=== PATIENT | female | born 1990 | race Caucasian/White ===

== ENCOUNTER 2020-04-13 12:00 | Outpatient (CLI) | payer OTHER, SELFPAY | END 2020-04-13 13:00 | disposition home or self-care (01) | LOC: SLB 12:00 → EDSTATUS 04-19 09:45 | PROVIDERS: ATTEND Obstetrics & Gynecology | DX: Z01.812 Encounter for preprocedural laboratory examination (principal); Z20.822 Contact with and (suspected) exposure to COVID-19 | CPT/HCPCS: U0003 ==

== ENCOUNTER 2020-05-11 07:02 | Day surgery (SDC) | payer OTHER, SELFPAY ==
[~2020-05-11] VITALS: Ht 162.6 cm; Wt 87.1 kg
[2020-05-11] MEDS ORDERED: OXYCODONE/ACETAMINOPHEN 5-325 TABLET PO ONE (08:30)
[2020-05-11] MEDS ORDERED: LR 1,000 ML IV SCH (08:30)
[2020-05-11] MEDS ORDERED: fentaNYL CITRATE/PF 100 MCG/2 ML AMP IVP PRN (08:30)
[2020-05-11] MEDS ORDERED: MEPERIDINE HCL/PF 25 MG/ML DISP.SYRIN IVP PRN (08:30)
[2020-05-11 10:15] VITALS: BP_SYST 121
[2020-05-11] MEDS ORDERED: KETOROLAC TROMETHAMINE 30 MG VIAL IVP ONE (10:30)
[2020-05-11] MEDS ORDERED: ONDANSETRON HCL 4 MG/2 ML VIAL IVP ONE (10:30)
[2020-05-11] MEDS ORDERED: HYDROmorphone 2 MG/ML VIAL IVP ONE (10:30)
[2020-05-11] MEDS ORDERED: ONDANSETRON HCL 4 MG/2 ML VIAL ONE (10:34)
== END 2020-05-11 11:45 | disposition home or self-care (01) ==
LOC: SMU 07:02 → SDS 07:02
PROVIDERS: ATTEND Obstetrics & Gynecology
DX: Z30.2 Encounter for sterilization (principal); F90.9 Attention-deficit hyperactivity disorder, unspecified type; Z79.899 Other long term (current) drug therapy; Z20.828 Contact with and (suspected) exposure to other viral communicable diseases
CPT/HCPCS: 58670; C1727; J2405; U0003

== ENCOUNTER 2020-05-13 23:54 | Emergency (ER) | payer OTHER, SELFPAY ==
[~2020-05-13] VITALS: Ht 162.6 cm; Wt 86.2 kg
[2020-05-14] VITALS: BP_SYST 157
--- NOTE | 2020-05-14 00:05 | NUR ---
Patient to ER bed 8 to gown for evaluation. Side rails up.
--- NOTE | 2020-05-14 00:06 | NUR ---
Patient came to ER with family. C/O constipation x 3 days. Patient had constipation for 3 days, took stool softener, laxatives and no relief, rectal bleeding. A/O,X4, rectal pain, pain rate 5/10.
--- NOTE | 2020-05-14 00:19 | NUR ---
ER Dr. Pretty at bedside examining patient.
[2020-05-14] MEDS ORDERED: SODIUM PHOSPHATE,MONO-DIBASIC 133 ML ENEMA RC ONE (00:30)
[2020-05-14] MEDS ORDERED: MIDAZOLAM HCL 5 MG/5 ML VIAL IVP ONE (01:45)
[2020-05-14] MEDS ORDERED: MIDAZOLAM HCL 5 MG/5 ML VIAL ONE (02:11)
[2020-05-14 02:27] LABS: BASOPHILS # (AUTO) 0.1 K/uL (0.0-0.2); BASOPHILS % (AUTO) 0.5 % (0.0-2.0); EOSINOPHILS # (AUTO) 0.1 K/uL (0.0-0.4); EOSINOPHILS % (AUTO) 0.6 % (0.0-4.0); HEMATOCRIT 40.6 % (36-48); HEMOGLOBIN 13.7 g/dL (12.0-16.0); LYMPHOCYTES # (AUTO) 2.5 K/uL (1.0-5.5); LYMPHOCYTES % (AUTO) 21.5 % (20.5-51.5); MEAN CORPUSCULAR HEMOGLOBIN 31 pg (27-31); MEAN CORPUSCULAR HGB CONC 34 % (32-36); MEAN CORPUSCULAR VOLUME 93 fL (79.0-98.0); MONOCYTES # (AUTO) 0.7 K/uL (0.0-1.0); MONOCYTES % (AUTO) 5.9 % (1.7-9.3); NEUTROPHILS # (AUTO) 8.2 K/uL (1.8-7.7); NEUTROPHILS % (AUTO) 71.5 % (40.0-70.0); PLATELET COUNT (AUTO) 206 K/uL (130-430); RED BLOOD CELL COUNT(AUTO) 4.35 MIL/uL (4.2-6.2); RED CELL DISTRIBUTION WIDTH 13.4 % (9.0-15.0); WHITE BLOOD COUNT (AUTO) 11.5 K/uL (4.8-10.8)
[2020-05-14 02:40] VITALS: BP_SYST 148
--- NOTE | 2020-05-14 02:45 | NUR ---
Patient given written and verbal discharge instructions and verbalizes understanding. DR. BEVERLY QUIGLEY MD discussed with patient the results and treatment provided. Patient in stable condition. ID arm band removed. IV catheter removed intact and dressing applied, no active bleeding. Rx of COLACE AND MAG CITRATE given. Patient educated on pain management and to follow up with PMD. Pain Scale 0/10. Opportunity for questions provided and answered. Medication side effect fact sheet provided.
[2020-05-14 02:49] LABS: CALCIUM 9.2 mg/dL (8.4-11.0); CREATININE 1.03 mg/dL (0.55-1.30); POTASSIUM 3.5 mmol/L (3.5-5.1)
[2020-05-14 02:53] LABS: ALBUMIN 3.6 g/dL (3.4-4.8); TOTAL BILIRUBIN 0.4 mg/dL (0.0-1.0)
== END 2020-05-14 02:40 | disposition home or self-care (01) ==
LOC: SED 23:54
DX: K59.00 Constipation, unspecified (principal)
CPT/HCPCS: 36415; 80053; 83690; 85025; 96374; 99283; J2250

== ENCOUNTER 2023-07-11 23:02 | Emergency (ER) | payer OTHER ==
[~2023-07-11] VITALS: Ht 162.6 cm; Wt 90.7 kg
[2023-07-11 23:12] VITALS: BP_SYST 120; PULSE 117; RESP 16; TEMP 97.9; O2SAT 98
[2023-07-11] MEDS: KETOROLAC TROMETHAMINE 30 MG VIAL IVP ONE (23:55)
[2023-07-11] MEDS: ONDANSETRON HCL 4 MG/2 ML VIAL IVP ONE (23:55)
[2023-07-11] MEDS: NACL 0.9% 1,000 ML IV ONE (23:56)
[2023-07-12 00:04] LABS: CALCIUM 8.8 mg/dL (8.4-11.0); CREATININE 0.89 mg/dL (0.55-1.30); POTASSIUM 3.6 mmol/L (3.5-5.1)
[2023-07-12 00:23] LABS: ALBUMIN 3.8 g/dL (3.4-4.8); BILIRUBIN,DIRECT 0.1 mg/dL (0.0-0.3); TOTAL BILIRUBIN 0.7 mg/dL (0.0-1.0); TOTAL PROTEIN, SERUM 8.1 g/dL (6.4-8.3)
[2023-07-12 01:31] LABS: BASOPHILS # (AUTO) 0.1 K/uL (0.0-0.2); BASOPHILS % (AUTO) 0.3 % (0.0-2.0); EOSINOPHILS # (AUTO) 0.1 K/uL (0.0-0.4); EOSINOPHILS % (AUTO) 0.3 % (0.0-4.0); HEMATOCRIT 43.9 % (36-48); LYMPHOCYTES # (AUTO) 0.4 K/uL (1.0-5.5); LYMPHOCYTES % (AUTO) 2.4 % (20.5-51.5); MEAN CORPUSCULAR HEMOGLOBIN 31 pg (27-31); MEAN CORPUSCULAR HGB CONC 34 % (32-36); MEAN CORPUSCULAR VOLUME 92 fL (79.0-98.0); MONOCYTES # (AUTO) 0.7 K/uL (0.0-1.0); MONOCYTES % (AUTO) 3.9 % (1.7-9.3); NEUTROPHILS # (AUTO) 17.4 K/uL (1.8-7.7); NEUTROPHILS % (AUTO) 93.1 % (40.0-70.0); PLATELET COUNT (AUTO) 222 K/uL (130-430); RED BLOOD CELL COUNT(AUTO) 4.78 MIL/uL (4.2-6.2); RED CELL DISTRIBUTION WIDTH 13.6 % (9.0-15.0); WHITE BLOOD COUNT (AUTO) 18.7 K/uL (4.8-10.8)
[2023-07-12 01:37] VITALS: RESP 18; TEMP 98.1
[2023-07-12] MEDS ORDERED: ONDA-8 TL (01:40)
[2023-07-12] MEDS: MORPHINE 4 MG INJ. 4 MG/ML VIAL IVP ONE (03:25)
[2023-07-12] MEDS: ONDANSETRON HCL 4 MG/2 ML VIAL IVP ONE (03:25)
[2023-07-12 03:45] VITALS: BP_SYST 124; PULSE 109; O2SAT 98
[2023-07-12] MEDS: METOCLOPRAMIDE HCL 10 MG/2 ML VIAL IVP ONE (03:49)
== END 2023-07-12 03:48 | disposition home or self-care (01) ==
LOC: SED 23:02
DX: A05.9 Bacterial foodborne intoxication, unspecified (principal); E87.20 Acidosis, unspecified; E86.0 Dehydration; R10.9 Unspecified abdominal pain; Z98.51 Tubal ligation status
CPT/HCPCS: 99285; 74176; 96374; 96361; 96375 ×2; 80076; 80048; 85025; 87040; 36415; 83605; 96376; J1885; J2405 ×2; J7030; J2765; J2270